=== PATIENT | female | born 1965 | race Caucasian/White ===

== ENCOUNTER 2023-06-16 11:22 | Outpatient (CLI) | payer MEDICAID, SELFPAY ==
--- NOTE | 2023-06-16 11:30 | MM_ITS ---
WS: [id number] SCREENING DIGITAL BREAST TOMOSYNTHESIS MAMMOGRAM WITH CAD HISTORY: SCREENING COMPARISON: None available. Bilateral CC and MLO with tomosynthesis and synthetic mammography submitted. Computer aided detection analyzed. Breast composition: There are scattered areas of fibroglandular density. Well-circumscribed 8 x 6 mm ovoid mass RIGHT breast at middle depth near 10-11 o'clock. No suspicious calcifications. IMPRESSION: MM/[place] [id number] BI-RADS: 0-Incomplete: Need additional imaging evaluation FOLLOW UP: Need Additional Imaging Recommendation: RIGHT breast ultrasound, limited.
== END 2023-06-16 11:23 | disposition home or self-care (01) ==
LOC: MOBLMAM 11:25
PROVIDERS: PCP Physician Assistant; Visit Provider Physician Assistant
DX: Z12.31 Encounter for screening mammogram for malignant neoplasm of breast (principal)
CPT/HCPCS: 77063; 77067

== ENCOUNTER 2023-12-05 16:20 | Emergency (ER) | payer MEDICAID, SELFPAY ==
[2023-12-05 16:20] VITALS: BP 157/93; PULSE 85; RESP 16; TEMP 36.7; O2SAT 97; BMI 27.9
--- NOTE | 2023-12-05 16:38 | XRR_ITS ---
PROCEDURE INFORMATION: Exam: XR Right Hip Exam date and time: 12/05/2023 4:46 PM Age: 58 years old Clinical indication: Hip pain; Right hip; Prior surgery; Surgery date: 6+ months; Surgery type: Back; Additional info: Pain; One view pelvis too please TECHNIQUE: Imaging protocol: Radiologic exam of the right hip. Views: 1 view hip with pelvis when performed. COMPARISON: CR XR abdomen 1V* [id number] 10/23/2018 2:16 PM FINDINGS: Bones/joints: Mild osteoarthritis without evidence of fracture or subluxation. Pelvic ring is grossly intact. Sacrum and coccyx are partially obscured by bowel gas/stool. Lumbar fusion hardware partially visualized. Soft tissues: No gross soft tissue abnormality. Multiple clips noted in both groins. XR/XR hip RT 2-3V wo/w pel* [id number] IMPRESSION: 1. Mild osteoarthritis of the right hip without evidence of fracture or subluxation.
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
[2023-12-05] MEDS: ketorolac 60 mg/2 mL INJ IM (17:12)
[2023-12-05] MEDS: morphine 4 mg/mL SDV 1 mL IM (17:12)
[2023-12-05] MEDS: dexamethasone 10 mg/mL INJ IM (18:17)
[2023-12-05 18:18] VITALS: BP 138/94; PULSE 79; RESP 16; TEMP 36.7; O2SAT 98
== END 2023-12-05 18:18 | disposition home or self-care (01) ==
PROVIDERS: Emergency Provider Physician Assistant; PCP Physician Assistant
DX: M16.11 Unilateral primary osteoarthritis, right hip (principal)
CPT/HCPCS: 73502; 96372; 99284; J1100; J1885; J2270

== ENCOUNTER 2024-12-12 13:53 | Outpatient (CLI) | payer MEDICAID, SELFPAY ==
[2024-12-12] MEDS: iohexol 350 mg/mL 500 mL Btl (per mL) PO (14:40)
--- NOTE | 2024-12-12 15:00 | CT_ITS ---
WS: [id number] CT ABDOMEN WITH CONTRAST HISTORY: K46.9 - Unspecified abdominal hernia without obstruction ... Contiguous single phase 5 mm axial imaging performed to the abdomen. Oral contrast has been provided. Coronal and sagittal reformats are submitted. All CT scans at [facility] use at least one of these dose optimization techniques: automated exposure control; mA and/or kV adjustment per patient size (includes targeted exams where dose is matched to clinical indication); or iterative reconstruction. IV CONTRAST: Omnipaque 350; 100 mL IV. Oral contrast: Yes. DLP: 206.66 mGy.cm COMPARISON: None available. Lower thorax: Lung bases are clear. Heart is normal size. No hiatal hernia. Liver/biliary system: Normal size with no intrahepatic dilatation. Gallbladder: Normal. No gallstones or wall thickening. No pericholecystic fluid. Pancreas: Normal size pancreas and pancreatic duct. No adjacent inflammation. Spleen: Normal size spleen. No mass or infarct. Adrenal glands: Normal. Right kidney: No renal obstruction. 1.5 cm cyst upper pole. Left kidney: No obstruction. There are a few tiny cysts in cortical hypodensities which are too small to characterize. Aorta: Mild atherosclerosis with no aneurysm. Aortic comes densely calcified near the bifurcation. Mesenteric arteries are normally enhancing. Lymphadenopathy: None. Free fluid: None. GI tract: No GI tract obstruction. There is a loop of transverse colon extending into the large supraumbilical hernia. Diffuse constipation. Abdominal wall: Multifocal ventral abdominal wall hernias extend supraumbilical at multiple levels. The largest centered 6 cm above the umbilicus contains fat and a small segment of transverse colon. There is no obstruction evident. Smaller midline fat-containing hernias are identified more superior to the large hernia. There is an additional fat-containing umbilical hernia. Visualized osseous structures: Prior posterior lumbar fusion at L4-5. L4 anterolisthesis by [address]/CT abdomen w con* [id number] IMPRESSION: 1. Several supraumbilical abdominal wall hernias are identified. 2. Largest hernia 6 cm above the umbilicus contains omental fat and a nondilat ed segment of transverse colon. 3. Smaller more superior ventral abdominal wall hernias contain fat only. 4. Small fat-containing umbilical hernia. 5. Extensive calcification within the aorta. Mesenteric artery atherosclerosis .
[2024-12-12] MEDS: iohexol 350 mg/mL 500 mL Btl (per mL) IV (15:01)
== END 2024-12-12 13:54 | disposition home or self-care (01) ==
LOC: RAD 13:54
PROVIDERS: PCP Nurse Practitioner; Visit Provider Nurse Practitioner
DX: K43.9 Ventral hernia without obstruction or gangrene (principal)
CPT/HCPCS: 74160

== ENCOUNTER → 2025-01-24 13:36 | Outpatient (BNVA) | payer MEDICAID, SELFPAY | PROVIDERS: PCP Nurse Practitioner; Visit Provider Nurse Practitioner | DX: R20.0 Anesthesia of skin (principal); R20.2 Paresthesia of skin | CPT/HCPCS: 80053; 83036; 84443; 85025 ==